=== PATIENT | male | born 1955 | race Caucasian/White ===

== ENCOUNTER 2019-05-10 08:46 | Outpatient (CLI) | payer MEDICARE, MEDICAID, SELFPAY ==
--- NOTE | 2019-05-10 | XR_ITS ---
WS: [id number] PROCEDURE: XR chest 2V* [id number] CLINICAL INFORMATION: SHORTNESS OF BREATH, WEAKNESS COMPARISON: FINDINGS: Heart: Normal cardiac silhouette. Sternotomy. Aortic calcification. Lungs: Chronic emphysema with interstitial thickening. No acute-appearing pulmonary infiltrates. No f ocal pneumonia. Bones: Normal visualized bony structures. XR/XR chest 2V* [id number] IMPRESSION: Chronic emphysematous changes with interstitial thickening. No focal pneumonia.
== END 2019-05-10 08:47 | disposition home or self-care (01) ==
LOC: RADOUTREAD 05-12 08:52
PROVIDERS: Family Provider Family Medicine; PCP Family Medicine; Visit Provider Family Medicine
DX: J43.9 Emphysema, unspecified (principal); R06.02 Shortness of breath; R04.2 Hemoptysis; R53.1 Weakness; F17.200 Nicotine dependence, unspecified, uncomplicated; Z95.1 Presence of aortocoronary bypass graft

== ENCOUNTER 2019-05-27 16:11 | Emergency (ER) | payer MEDICARE, MEDICAID, SELFPAY ==
[2019-05-27 16:13] VITALS: BP 92/47; PULSE 71; RESP 20; TEMP 36.5; O2SAT 98; BMI 29.9
--- NOTE | 2019-05-27 16:15 | ED_ITS ---
Entered by Melani Vieira, acting as scribe for May 27, 2019 16:11 HPI - General Adult General: Chief complaint: Dizziness Stated complaint: WEAK/ DIZZY/ HYPOTENSION Time Seen by Provider: 05/27/19 16:14 Source: patient and EMS Mode of arrival: EMS Limitations: no limitations History of Present Illness: HPI narrative: pt states he woke up with dizziness and off balance. pt had vomiting yesterday. pt states he has had low blood pressure in the past. pt MD complaint: low blood pressure Onset (ago): day(s) (today) Radiation: non-radiation Severity: moderate Relieving factors: none Exacerbating factors: movement (walking) Associated symptoms: Reports vomiting (yesterday) and weakness; Deny chest pain, dyspnea, headache(s) or rash Treatments prior to arrival: none Review of Systems Const: Denies: fever, chills, body aches or change in appetite Eyes: Denies: blurry vision or eye discomfort ENMT: Denies: throat pain or dental pain Card: Denies: chest pain Resp: Denies: shortness of breath GI: Reports: vomiting (yesterday) : Denies: painful urination Musc: Denies: neck pain or back pain Skin/Breast: Denies: rash Neuro: Denies: headache Psych: Denies: depression Rene/Lymph: Denies: easy bruising All/Imm: Denies: hives PFSH ED PFSH: Statuses (acute, chronic, etc) shown below reflect problem list status as previously entered and may not be historically accurate Family History (Updated 05/16/19 @ 08:26 by BHUMI Pineda) Father Lupus Other Alcohol abuse Cancer Depression Diabetes Denies family history of Anesthesia complication Bleeding disorder Social History (Updated 05/16/19 @ 08:27 by BHUMI Pineda) Smoking and tobacco status: current every day smoker Alcohol intake: never Lives independently: Yes Household members: spouse Marital status: Current occupational status: retired Physical Exam Const: COMMON NORMALS: no apparent distress, oriented x3 and healthy appearing HENMT: COMMON NORMALS: normocephalic and head/scalp atraumatic HEAD & SCALP: normocephalic and atraumatic Eye: COMMON NORMALS: PERRL and EOMs intact bilaterally PUPIL: Yes PERRL Neck/C-Spine: COMMON NORMALS: full ROM and supple Chest: COMMONS NORMALS: inspection of chest normal and palpation of chest normal Resp: COMMON NORMALS: normal respiratory effort, no retractions, no use of accessory muscles and clear to auscultation bilaterally AUSCULTATION: clear to auscultation bilaterally Cardio: COMMON NORMALS: regular rate, regular rhythm and no murmurs RATE: regular rate RHYTHM: regular rhythm GI: COMMON NORMALS: normal to inspection, nondistended, normoactive bowel sounds, soft to palpation, non-tender and no masses PALPATION: Yes soft Extremity: COMMON NORMALS: normal to inspection and full ROM Neuro: COMMON NORMALS: oriented x3 Psych: COMMON NORMALS: mental status grossly normal, thought process normal and cooperative THOUGHT PROCESS: normal thought process Skin: COMMON NORMALS: no rashes or lesions noted and no wounds GENERAL SKIN EXAM: no rashes or lesions noted Course Vital Signs: Vital signs: Vital Signs Temperature 97.7 F 05/27/19 16:13 Pulse Rate 64 05/27/19 17:49 Respiratory Rate 18 05/27/19 17:49 Blood Pressure 104/59 05/27/19 17:49 Pulse Oximetry 94 05/27/19 17:49 MDM - General Adult MDM Narrative: Medical decision making narrative: Patient presents here with dizziness likely from dehydration. Patient feels much improved after fluids and is requesting discharge. I feel he is stable for discharge and has no signs of sepsis. Patient has not had a cough or any signs of infection. He is stable for discharge and is to follow-up with his primary care doctor in 3 to 5 days and return to ER if worsening. Lab Data: Labs: Lab Results 05/27/19 05/27/19 05/27/19 Range/Units 15:55 15:55 15:55 WBC 8.6 (4.0-10.0) 10^3/ uL RBC 4.98 (4.1-5.3) 10^6/u L Hgb 15.5 (11.7-16.6) g/dL Hct 46.7 (42.0-52.0) % MCV 93.8 (80-94) fL MCH 31.1 (28.0-34.0) pg MCHC 33.2 (30.0-36.0) g/dL RDW 13.2 (12.1-15.1) % Plt Count 265 (130-400) 10^3/c mm MPV 10.0 (7.4-10.4) fL Neut % (Auto) 48.4 % Lymph % (Auto) 38.8 % [place] % (Auto) 8.8 % Eos % (Auto) 2.6 % Baso % (Auto) 1.2 % Neut # (Auto) 4.2 (1.8-7.7) 10^3/u L Lymph # (Auto) 3.3 (0.8-4.8) 10^3/u L [place] # (Auto) 0.8 (0.2-0.9) 10^3/u L Eos # (Auto) 0.2 (0.0-0.8) 10^3/u L Baso # (Auto) 0.1 (0.0-0.1) 10^3/u L Nucleated RBC % (a uto) 0 % Nucleated RBCs # 0.0 /100WBC PT 12.60 (10.5-13.3) SECO NDS INR 0.92 (0.8-1.2) Sodium 139 (136-145) mmol/L Potassium 3.8 (3.5-5.1) mmol/L Chloride 99 (98-107) mmol/L Carbon Dioxide 25 (22-29) mmol/L Anion Gap 18.8 (5-19) BUN 37 H (8-23) mg/dL Creatinine 2.2 H (0.7-1.2) mg/dL GFR Calculation 30.4 L (90-130) mL/min Glucose 187 H (74-106) mg/dL Lactic Acid (0.5-2.2) mmol/L Calcium 10.8 H (8.5-10.5) mg/dL Total Bilirubin 0.3 (0.15-1.2) mg/dL AST 16 (0-40) U/L ALT 11 (0-41) U/L Alkaline Phosphata se 71 (40-130) IU/L Troponin T Baselin e (0-15) ng/mL Total Protein 8.1 (6.6-8.7) g/dL Albumin 4.7 (3.5-5.2) g/dL Globulin 3.4 (1.3-4.6) g/dL 05/27/19 05/27/19 Range/Units 15:55 16:27 WBC (4.0-10.0) 10^3/ uL RBC (4.1-5.3) 10^6/u L Hgb (11.7-16.6) g/dL Hct (42.0-52.0) % MCV (80-94) fL MCH (28.0-34.0) pg MCHC (30.0-36.0) g/dL RDW (12.1-15.1) % Plt Count (130-400) 10^3/c mm MPV (7.4-10.4) fL Neut % (Auto) % Lymph % (Auto) % [place] % (Auto) % Eos % (Auto) % Baso % (Auto) % Neut # (Auto) (1.8-7.7) 10^3/u L Lymph # (Auto) (0.8-4.8) 10^3/u L [place] # (Auto) (0.2-0.9) 10^3/u L Eos # (Auto) (0.0-0.8) 10^3/u L Baso # (Auto) (0.0-0.1) 10^3/u L Nucleated RBC % (a uto) % Nucleated RBCs # /100WBC PT (10.5-13.3) SECO NDS INR (0.8-1.2) Sodium (136-145) mmol/L Potassium (3.5-5.1) mmol/L Chloride (98-107) mmol/L Carbon Dioxide (22-29) mmol/L Anion Gap (5-19) BUN (8-23) mg/dL Creatinine (0.7-1.2) mg/dL GFR Calculation (90-130) mL/min Glucose (74-106) mg/dL Lactic Acid 1.4 (0.5-2.2) mmol/L Calcium (8.5-10.5) mg/dL Total Bilirubin (0.15-1.2) mg/dL AST (0-40) U/L ALT (0-41) U/L Alkaline Phosphata se (40-130) IU/L Troponin T Baselin e 20 H (0-15) ng/mL Total Protein (6.6-8.7) g/dL Albumin (3.5-5.2) g/dL Globulin (1.3-4.6) g/dL Imaging Data^: CXR: Radiologist's impression: Patient: Gaudencio Boland Unit #: [id number] : 1955 Age/Sex: 63 / M ADM Date: 05/27/19 Loc: ER Room/Bed: Attending Dr: Ordering Provider/Ordering MD: Chung Anderson MD Date of Service: 05/27/19 Procedure(s): XR chest 1V portable [id number] Accession Number(s): [id number] Report Number: [id number] PROCEDURE INFORMATION: Exam: XR Chest, 1 View Exam date and time: 05/27/2019 4:44 PM Age: 63 years old Clinical indication: Cough TECHNIQUE: Imaging protocol: XR of the chest Views: 1 view. COMPARISON: CR XR chest 2V* [id number] 05/10/2019 4:01 PM FINDINGS: Lungs: Nonspecific bibasilar opacity is present, consistent with atelectasis, fibrosis, interstitial edema, or early bibasilar pneumonia. Pleural space: Unremarkable. No pleural effusion. No pneumothorax. Heart/Mediastinum: The heart is enlarged. Sternotomy wires and mediastinal surgical clips are present, consistent with previous coronary arterial bypass grafting. Bones/joints: No acute abnormality. Other findings: Probable mild fibrosis is unchanged. XR/XR chest 1V portable [id number] IMPRESSION: Nonspecific bibasilar opacity is present, consistent with atelectasis, fibrosis, interstitial edema, or early bibasilar pneumonia. EKG Data^: EKG 1: Attestation: I personally reviewed and interpreted this EKG as follows: EKG interpretation date: 05/27/19 EKG interpretation time: 16:25 Interpretation: nsr hr [address] or t wave abnormalities qrs 93 qtc 385 Computer generated interpretation: Chest X-Ray 05/27/19 16:17 IMPRESSION: Nonspecific bibasilar opacity is present, consistent with atelectasis, fibrosis, interstitial edema, or early bibasilar pneumonia. Head CT 05/27/19 16:49 IMPRESSION: No acute intracranial abnormality. Radiation Dose CTDIVOL = (mGy): DLP = 892.36 (mGy-cm) Discharge Plan Discharge Patient Disposition: Home, Self-Care Clinical Impression: Weakness, Vomiting, Acute dehydration Condition: Stable Prescriptions: New Zofran 4 mg tablet 4 mg PO QID PRN (Reason: nausea and vomiting) Qty: 14 RF: 0 No Action hydrocodone-acetaminophen 10-325 mg tablet 2 tab PO TID PRNRF: 0 methocarbamol 500 mg tablet 500 mg PO QID RF: 0 gabapentin 800 mg tablet See Rx Instructions PO BID RF: 0 fentanyl 50 mcg/hr patch 72 hour 1 patch TRANSDERMA Q72H RF: 0 niacin 500 mg tablet 500 mg PO QDAY RF: 0 isosorbide mononitrate 120 mg tablet extended release 24 hr 120 mg PO QAM RF: 0 aspirin [Adult Low Dose Aspirin] 81 mg tablet,delayed release (DR/EC) 81 mg PO QDAY RF: 0 clopidogrel 75 mg tablet 75 mg PO QDAY RF: 0 rosuvastatin [Crestor] 40 mg tablet 40 mg PO QDAY RF: 0 ezetimibe 10 mg tablet 10 mg PO QDAY RF: 0 nitroglycerin [Nitrolingual] 400 mcg/spray spray,non-aerosol 1 spray SUBLINGUAL Q5M PRNRF: 0 ranolazine 500 mg tablet extended release 12 hr 500 mg PO BID RF: 0 Farxiga 10 mg tablet 10 mg PO QAM RF: 0 levothyroxine 75 mcg capsule 75 mcg PO QDAY RF: 0 escitalopram oxalate [Lexapro] 20 mg tablet 20 mg PO QDAY RF: 0 Victoza 2-John 0.6 mg/0.1 mL (18 mg/3 mL) pen injector 0.6 mg SUBCUT QDAY RF: 0 Lantus Solostar U-100 Insulin 100 unit/mL (3 mL) insulin pen 25 unit SUBCUT QDAY RF: 0 multivitamin [Daily Multi-Vitamin] Tablet 1 tab PO QAM RF: 0 fenofibrate 150 mg capsule 150 mg PO QDAY RF: 0 simethicone [Gas Relief (simethicone)] 80 mg tablet,chewable 80 mg PO ONCE RF: 0 esomeprazole magnesium [Nexium] 40 mg capsule,delayed release(DR/EC) 40 mg PO BID RF: 0 trazodone 50 mg tablet 50 mg PO QDAY PRNRF: 0 Bydureon 2 mg/0.65 mL pen injector 2 mg SUBCUT BID RF: 0 loratadine 10 mg tablet 10 mg PO QDAY RF: 0 tamsulosin 0.4 mg capsule 0.4 mg PO QDAY RF: 0 metoprolol tartrate 50 mg tablet 50 mg PO BID 90 Days Qty: 180 RF: 3 Discharge Orders: Discharge Order (Routine); Ordered 05/27/19 Ordered By: Chung Anderson Referrals: Ronan Carlos MD [Primary Care Provider] - Discharge Diet: Advance as tolerated Discharge Activity: Increase activity as tolerated Patient Instructions: Dehydration (ED), Weakness (ED) Discharge Date/Time: 05/27/19 17:56 Coding Level of Care Code ED Director Business Systems for Chg Fwd Exam Problem Focused The documentation recorded by the Dariel hurley Bridget Annette, accurately reflects the service I personally performed and the decisions made by Justin pastor Korby, MD May 27, 2019 16:11
[2019-05-27 16:47] LABS: Basophils # 0.1 10^3/uL (0.0-0.1); Basophils % 1.2 %; Eosinophils # 0.2 10^3/uL (0.0-0.8); Eosinophils % 2.6 %; Hematocrit 46.7 % (42.0-52.0); Hemoglobin 15.5 g/dL (11.7-16.6); Lymphocytes # 3.3 10^3/uL (0.8-4.8); Lymphocytes % 38.8 %; Mean Corpuscular HGB Conc 33.2 g/dL (30.0-36.0); Mean Corpuscular Hemoglobin 31.1 pg (28.0-34.0); Mean Corpuscular Volume 93.8 fL (80-94); Monocytes # 0.8 10^3/uL (0.2-0.9); Monocytes % 8.8 %; Neutrophils # 4.2 10^3/uL (1.8-7.7); Neutrophils % 48.4 %; Nucleated Red Blood Cells % 0 %; Platelet Count 265 10^3/cmm (130-400); Red Blood Count 4.98 10^6/uL (4.1-5.3); Red Cell Distribution Width 13.2 % (12.1-15.1); White Blood Count 8.6 10^3/uL (4.0-10.0)
--- NOTE | 2019-05-27 16:49 | CTR_ITS ---
PROCEDURE INFORMATION: Exam: CT Head Without Contrast Exam date and time: 05/27/2019 4:50 PM Age: 63 years old Clinical indication: Weakness, facial; Patient HX: Weakness / low BP / dizziness TECHNIQUE: Imaging protocol: Computed tomography of the head without contrast. Total DLP: 892.36 mGy-cm Radiation optimization: All CT scans at this facility use at least one of these dose optimization techniques: automated exposure control; mA and/or kV adjustment per patient size (includes targeted exams where dose is matched to clinical indication); or iterative reconstruction. COMPARISON: No relevant prior studies available. FINDINGS: Brain: Normal. No hemorrhage. Unremarkable white matter. No mass effect. Ventricles: Normal. No ventriculomegaly. Bones/joints: Unremarkable. No acute fracture. Sinuses: Visualized sinuses are unremarkable. No fluid levels. Mastoid air cells: Visualized mastoid air cells are well aerated. Soft tissues: Unremarkable. CT/CT head wo con* [id number] IMPRESSION: No acute intracranial abnormality. Radiation Dose CTDIVOL = (mGy): DLP = 892.36 (mGy-cm)
[2019-05-27 17:01] LABS: INR 0.92 (0.8-1.2)
[2019-05-27 17:03] LABS: Lactic Sepsis W/Reflex 1.4 mmol/L (0.5-2.2)
[2019-05-27 17:06] LABS: Alanine Aminotransferase 11 U/L (0-41); Albumin Level 4.7 g/dL (3.5-5.2); Alkaline Phosphatase 71 IU/L (40-130); Anion Gap 18.8 (5-19); Aspartate Amino Transferase 16 U/L (0-40); Blood Urea Nitrogen 37 mg/dL (8-23); Calcium 10.8 mg/dL (8.5-10.5); Carbon Dioxide 25 mmol/L (22-29); Chloride 99 mmol/L (98-107); Creatinine Clr Calc Pharmacy 42.1252; Globulin 3.4 g/dL (1.3-4.6); Glomerular Filtration Rate 30.4 mL/min (90-130); Glucose 187 mg/dL (74-106); Potassium 3.8 mmol/L (3.5-5.1); Sodium 139 mmol/L (136-145); Total Bilirubin 0.3 mg/dL (0.15-1.2); Total Protein 8.1 g/dL (6.6-8.7)
[2019-05-27 17:07] LABS: Troponin(5th) Baseline 20 ng/mL (0-15)
[2019-05-27] MEDS: sodium chloride 0.9% 1,000 ML 999 ML IV (17:23)
[2019-05-27 17:49] VITALS: BP 104/59; PULSE 64; RESP 18; O2SAT 94
--- NOTE | 2019-05-27 22:19 | ECG_ITS ---
Measurements Intervals [place] Rate: 67 P: 45 SC: 198 QRS: -28 QRSD: 93 T: 71 QT: 370 QTc: 391 SINUS RHYTHM BORDERLINE LEFT AXIS DEVIATION [QRS AXIS < -20] INCOMPLETE RIGHT BUNDLE BRANCH BLOCK [90+ ms QRS DURATION, TERMINAL R IN V1/V2, 40+ ms S IN I/aVL/V4/V5/V6] NONSPECIFIC T-WAVE ABNORMALITY Compared to ECG 08/23/2015 05:54:46 Incomplete right bundle-branch block now present T-wave abnormality still present Electronically Signed On 05-28-2019 16:25:56 STILL CLEANER by Josephine Lepe M.D. [id number]
== END 2019-05-27 17:56 | disposition home or self-care (01) ==
PROVIDERS: Emergency Provider Emergency Medicine; Family Provider Family Medicine; PCP Family Medicine
DX: E86.0 Dehydration (principal); R53.1 Weakness; R11.10 Vomiting, unspecified; Z79.82 Long term (current) use of aspirin; Z79.02 Long term (current) use of antithrombotics/antiplatelets; Z79.4 Long term (current) use of insulin; F17.210 Nicotine dependence, cigarettes, uncomplicated
CPT/HCPCS: 36415; 70450; 71045; 80053; 83605; 84484; 85025; 85610; 87040; 93005; 96360; 96361; 99282; 99284; J7030

== ENCOUNTER 2019-06-07 14:26 | Outpatient (CLI) | payer MEDICARE, MEDICAID, SELFPAY ==
--- NOTE | 2019-06-07 | XR_ITS ---
WS: [id number] HIP WITH PELVIS LEFT TECHNIQUE: 3 views of the left hip with pelvis CLINICAL INFORMATION: LEFT HIP PAIN COMPARISON: None. FINDINGS: Moderate degenerative arthritis left hip with some subchondral cystic change. Osteopenia. Vascular ca lcification. No acute fractures. XR/XR hip LT 2-3V wo/w pel* [id number] IMPRESSION: Moderate degenerative arthritis left hip with subchondral cystic change. Osteop enia. No acute fractures
== END 2019-06-07 14:27 | disposition home or self-care (01) ==
PROVIDERS: Family Provider Family Medicine; PCP Family Medicine; Visit Provider Family Medicine
DX: Z76.89 Persons encountering health services in other specified circumstances (principal)

== ENCOUNTER → 2019-06-21 11:19 | Outpatient (BNVA) | payer MEDICARE, MEDICAID, SELFPAY | PROVIDERS: Family Provider Family Medicine; PCP Family Medicine; Referring Provider Family Medicine; Visit Provider Specialist | DX: G62.9 Polyneuropathy, unspecified (principal); R20.0 Anesthesia of skin; F17.210 Nicotine dependence, cigarettes, uncomplicated | CPT/HCPCS: 95913 ==

== ENCOUNTER → 2019-11-09 14:31 | Outpatient (BNVA) | payer MEDICARE, MEDICAID, SELFPAY | PROVIDERS: Family Provider Family Medicine; PCP Family Medicine; Visit Provider Family Medicine | DX: E11.42 Type 2 diabetes mellitus with diabetic polyneuropathy (principal); E78.5 Hyperlipidemia, unspecified; I10 Essential (primary) hypertension; N18.9 Chronic kidney disease, unspecified; I25.10 Atherosclerotic heart disease of native coronary artery without angina pectoris; M65.30 Trigger finger, unspecified finger; Z79.4 Long term (current) use of insulin; R22.9 Localized swelling, mass and lump, unspecified; J44.9 Chronic obstructive pulmonary disease, unspecified; K21.9 Gastro-esophageal reflux disease without esophagitis; G89.29 Other chronic pain; M54.5 Low back pain; E03.9 Hypothyroidism, unspecified; F03.90 Unspecified dementia, unspecified severity, without behavioral disturbance, psychotic disturbance, mood disturbance, and anxiety | CPT/HCPCS: 83036; 84443 ==

== ENCOUNTER → 2019-12-28 09:30 | Outpatient (BNVA) | payer MEDICARE, MEDICAID, SELFPAY | PROVIDERS: PCP Family Medicine; Referring Provider Family Medicine; Visit Provider Specialist | DX: R29.90 Unspecified symptoms and signs involving the nervous system (principal); G62.9 Polyneuropathy, unspecified; E11.40 Type 2 diabetes mellitus with diabetic neuropathy, unspecified; F17.210 Nicotine dependence, cigarettes, uncomplicated; J44.9 Chronic obstructive pulmonary disease, unspecified | CPT/HCPCS: 99204 ==

== ENCOUNTER → 2020-01-10 15:21 | Outpatient (BNVA) | payer MEDICARE, MEDICAID, SELFPAY | PROVIDERS: PCP Family Medicine Adult Medicine; Visit Provider Family Medicine Adult Medicine | DX: Z11.59 Encounter for screening for other viral diseases (principal) | CPT/HCPCS: 87635 ==

== ENCOUNTER → 2020-01-17 14:14 | Outpatient (BNVA) | payer MEDICARE, MEDICAID, SELFPAY | PROVIDERS: PCP Family Medicine Adult Medicine; Referring Provider Family Medicine; Visit Provider Dermatology | DX: D48.5 Neoplasm of uncertain behavior of skin (principal); F17.210 Nicotine dependence, cigarettes, uncomplicated | CPT/HCPCS: 99202; 99203 ==

== ENCOUNTER → 2020-02-06 17:16 | Outpatient (BNVA) | payer MEDICARE, MEDICAID, SELFPAY | PROVIDERS: PCP Family Medicine Adult Medicine; Visit Provider Dermatology | DX: D48.9 Neoplasm of uncertain behavior, unspecified (principal) | CPT/HCPCS: 88304 ==

== ENCOUNTER 2020-09-07 09:35 | Outpatient (CLI) | payer MEDICARE, MEDICAID, SELFPAY | END 2020-09-07 09:36 | disposition home or self-care (01) | LOC: LAB 07-11 15:32 | PROVIDERS: PCP Family Medicine Adult Medicine; Visit Provider Family Medicine Adult Medicine | DX: E11.9 Type 2 diabetes mellitus without complications (principal); I25.810 Atherosclerosis of coronary artery bypass graft(s) without angina pectoris; R29.6 Repeated falls; R42 Dizziness and giddiness; E78.5 Hyperlipidemia, unspecified; R09.89 Other specified symptoms and signs involving the circulatory and respiratory systems | CPT/HCPCS: 80053; 80061; 85025 ==

== ENCOUNTER → 2020-09-20 14:38 | Outpatient (BNVA) | payer MEDICARE, MEDICAID, SELFPAY | PROVIDERS: PCP Family Medicine Adult Medicine; Visit Provider Family Medicine Adult Medicine | DX: E11.9 Type 2 diabetes mellitus without complications (principal); E03.9 Hypothyroidism, unspecified; D04.9 Carcinoma in situ of skin, unspecified; R01.1 Cardiac murmur, unspecified; R09.89 Other specified symptoms and signs involving the circulatory and respiratory systems; I25.810 Atherosclerosis of coronary artery bypass graft(s) without angina pectoris; R53.1 Weakness; N18.9 Chronic kidney disease, unspecified; I25.10 Atherosclerotic heart disease of native coronary artery without angina pectoris; R42 Dizziness and giddiness; E11.39 Type 2 diabetes mellitus with other diabetic ophthalmic complication; H54.7 Unspecified visual loss; J44.9 Chronic obstructive pulmonary disease, unspecified | CPT/HCPCS: 83036; 84443 ==

== ENCOUNTER → 2021-01-15 11:27 | Outpatient (BNVA) | payer MEDICARE, MEDICAID, SELFPAY | PROVIDERS: PCP Family Medicine Adult Medicine; Visit Provider Family Medicine Adult Medicine | DX: E11.9 Type 2 diabetes mellitus without complications (principal); G47.00 Insomnia, unspecified; E03.9 Hypothyroidism, unspecified; E78.5 Hyperlipidemia, unspecified; J44.9 Chronic obstructive pulmonary disease, unspecified; N18.9 Chronic kidney disease, unspecified; F03.90 Unspecified dementia, unspecified severity, without behavioral disturbance, psychotic disturbance, mood disturbance, and anxiety; Z68.29 Body mass index [BMI] 29.0-29.9, adult; F17.210 Nicotine dependence, cigarettes, uncomplicated | CPT/HCPCS: 80053; 83036; 84443; 85025 ==

== ENCOUNTER 2021-10-26 01:14 | Emergency (ER) | payer MEDICARE, MEDICAID, SELFPAY ==
[2021-10-26 01:20] VITALS: BP 216/106; PULSE 102; RESP 18; TEMP 36.7; O2SAT 97; BMI 29.4
--- NOTE | 2021-10-26 01:24 | XRR_ITS ---
PROCEDURE INFORMATION: Exam: XR Chest Exam date and time: 10/26/2021 1:39 AM Age: 66 years old Clinical indication: Pain; Angina pectoris; Prior surgery; Surgery date: 6+ months; Surgery type: Cabbage, mi, stent; Additional info: Cp TECHNIQUE: Imaging protocol: Radiologic exam of the chest. Views: 1 view. COMPARISON: CR XR chest 1V portable [id number] 05/27/2019 4:35 PM FINDINGS: Lungs: Unremarkable. No consolidation. Pleural spaces: Unremarkable. No pleural effusion. No pneumothorax. Heart/Mediastinum: Unremarkable. No cardiomegaly. Bones/joints: There has been a median sternotomy. XR/XR chest 1V portable [id number] IMPRESSION: No acute disease.
[2021-10-26 01:43] LABS: Basophils # 0.2 10^3/uL (0.0-0.1); Basophils % 1.2 %; Eosinophils # 0.2 10^3/uL (0.0-0.8); Eosinophils % 1.2 %; Hematocrit 46.9 % (42.0-52.0); Hemoglobin 16.8 g/dL (11.7-16.6); Lymphocytes # 2.7 10^3/uL (0.8-4.8); Lymphocytes % 19.3 %; Mean Corpuscular HGB Conc 35.8 g/dL (30.0-36.0); Mean Corpuscular Hemoglobin 31.3 pg (28.0-34.0); Mean Corpuscular Volume 87.5 fl (80-94); Mean Platelet Volume 9.7 fL (7.4-10.4); Monocytes % 7.5 %; Neutrophils # 9.72 10^3/uL (1.8-7.7); Neutrophils % 70.6 %; Nucleated Red Blood Cells % 0 %; Platelet Count 259 10^3/cmm (130-400); Red Blood Count 5.36 10^6/uL (4.1-5.3); Red Cell Distribution Width 12.7 % (12.1-15.1); White Blood Count 13.8 10^3/uL (4.0-10.0)
[2021-10-26 01:53] LABS: INR 0.96 (0.8-1.2)
[2021-10-26 01:53] LABS: Glucose Point of Care 205 mg/dL (70-110)
[2021-10-26 01:54] LABS: Partial Thromboplastin Time 27.7 SECONDS (23.9-36.7)
[2021-10-26 02:07] LABS: Troponin(5th) Baseline 14 ng/L (0-15)
[2021-10-26 02:08] VITALS: BP 165/94; PULSE 103; RESP 16; O2SAT 95
[2021-10-26 02:16] LABS: Alanine Aminotransferase 17 U/L (0-41); Alkaline Phosphatase 73 IU/L (40-130); Anion Gap 18.5 (5-19); Aspartate Amino Transferase 16 U/L (0-40); Blood Urea Nitrogen 17 mg/dL (8-23); Calcium 10.4 mg/dL (8.5-10.5); Carbon Dioxide 24 mmol/L (22-29); Chloride 101 mmol/L (98-107); Creatine Phosphokinase 48 U/L (39-308); Globulin 3.3 g/dL (1.3-4.6); Glomerular Filtration Rate 84.4 mL/min (90-130); Glucose 202 mg/dL (65-115); NT Pro B Type Natriuretic Pept 345 pg/mL (0-125); Osmolality Calculated 297 mOsm/kg (285-295); Potassium 3.5 mmol/L (3.5-5.1); Sodium 140 mmol/L (136-145); Total Bilirubin 0.4 mg/dL (0.15-1.2); Total Protein 8.3 g/dL (6.6-8.7)
[2021-10-26 02:19] LABS: Alcohol Level < 10 mg/dL (0-10)
[2021-10-26 02:23] VITALS: BP 165/94; PULSE 103; RESP 16; O2SAT 95
--- NOTE | 2021-10-26 04:15 | W.ED.CHESTPA ---
HPI - Chest Pain General: Chief Complaint: Chest Pain Stated Complaint: cp Time Seen by Provider: 10/26/21 01:33 History of Present Illness: 66-year-old patient who is here with his earlier, and began to complain of some chest pain his chest pain was resolved prior to being placed in a room with no intervention. He became impatient after several minutes waiting, and decided to sign out AGAINST MEDICAL ADVICE without being seen by physician or provider. [facility] ED PFSH: Medical History (Updated 10/26/21 @ 04:17 by Roman Glynn DO) Basal cell carcinoma (BCC) in situ of skin CAD (coronary artery disease) SP TX and CABG Cardiac murmur, previously undiagnosed Chronic lower back pain COPD (chronic obstructive pulmonary disease) Dyslipidemia GERD (gastroesophageal reflux disease) Heart murmur Hypertension Insomnia Multiple falls Myocardial infarction Neuropathy Obesity Overgrown toenails Squamous cell carcinoma Thyroid cancer Tobacco abuse Surgical History History of appendectomy History of bilateral inguinal hernia repair History of colonoscopy (2015) History of coronary artery bypass surgery History of esophagogastroduodenoscopy (EGD) (2015) History of hemorrhoidectomy History of thyroidectomy History of tonsillectomy History of vasectomy Family History Father Lupus Other Alcohol abuse Cancer Depression Diabetes Denies family history of Anesthesia complication Bleeding disorder Social History Smoking and tobacco status: current every day smoker cigarettes Packs smoked per day: 2 Alcohol intake: never Lives independently: Yes Household members: spouse Marital status: Current occupational status: retired Course Vital Signs: Vital signs: Vital Signs Temperature 98.1 F 10/26/21 01:20 Pulse Rate 103 H 10/26/21 02:23 Respiratory Rate 16 10/26/21 02:23 Blood Pressure 165/94 10/26/21 02:23 Pulse Oximetry 95 10/26/21 02:23 MDM - Chest Pain Medical Decision Making Signed out AMA as above Lab Data : 10/26/21 01:30 10/26/21 01:30 Radiology Impressions Chest X-Ray 10/26/21 01:24 IMPRESSION: No acute disease. Laboratory Results WBC 13.8 10^3/uL (4.0-10.0) H 10/26/21 01:30 RBC 5.36 10^6/uL (4.1-5.3) H 10/26/21 01:30 Hgb 16.8 g/dL (11.7-16.6) H 10/26/21 01:30 Hct 46.9 % (42.0-52.0) 10/26/21 01:30 MCV 87.5 fl (80-94) 10/26/21 01:30 MCH 31.3 pg (28.0-34.0) 10/26/21 01:30 MCHC 35.8 g/dL (30.0-36.0) 10/26/21 01:30 RDW 12.7 % (12.1-15.1) 10/26/21 01:30 Plt Count 259 10^3/cmm (130-400) 10/26/21 01:30 MPV 9.7 fL (7.4-10.4) 10/26/21 01:30 Neut % (Auto) 70.6 % 10/26/21 01:30 Lymph % (Auto) 19.3 % 10/26/21 01:30 [place] % (Auto) 7.5 % 10/26/21 01:30 Eos % (Auto) 1.2 % 10/26/21 01:30 Baso % (Auto) 1.2 % 10/26/21 01:30 Neut # (Auto) 9.72 10^3/uL (1.8-7.7) H 10/26/21 01:30 Lymph # (Auto) 2.7 10^3/uL (0.8-4.8) 10/26/21 01:30 [place] # (Auto) 1.0 10^3/uL (0.2-0.9) H 10/26/21 01:30 Eos # (Auto) 0.2 10^3/uL (0.0-0.8) 10/26/21 01:30 Baso # (Auto) 0.2 10^3/uL (0.0-0.1) H 10/26/21 01:30 Nucleated RBC % (auto) 0 % 10/26/21 01:30 Nucleated RBCs # 0.0 /100WBC 10/26/21 01:30 PT 13.00 SECONDS (12.1-14.9) 10/26/21 01:30 INR 0.96 (0.8-1.2) 10/26/21 01:30 APTT 27.7 SECONDS (23.9-36.7) 10/26/21 01:30 Sodium 140 mmol/L (136-145) 10/26/21 01:30 Potassium 3.5 mmol/L (3.5-5.1) 10/26/21 01:30 Chloride 101 mmol/L (98-107) 10/26/21 01:30 Carbon Dioxide 24 mmol/L (22-29) 10/26/21 01:30 Anion Gap 18.5 (5-19) 10/26/21 01:30 BUN 17 mg/dL (8-23) 10/26/21 01:30 Creatinine 0.9 mg/dL (0.7-1.2) 10/26/21 01:30 GFR Calculation 84.4 mL/min (90-130) L 10/26/21 01:30 Glucose 202 mg/dL (65-115) H 10/26/21 01:30 POC Glucose 205 mg/dL (70-110) H 10/26/21 01:48 Calculated Osmolality 297 mOsm/kg (285-295) H 10/26/21 01:30 Calcium 10.4 mg/dL (8.5-10.5) 10/26/21 01:30 Total Bilirubin 0.4 mg/dL (0.15-1.2) 10/26/21 01:30 AST 16 U/L (0-40) 10/26/21 01:30 ALT 17 U/L (0-41) 10/26/21 01:30 Alkaline Phosphatase 73 IU/L (40-130) 10/26/21 01:30 Creatine Kinase 48 U/L (39-308) 10/26/21 01:30 Troponin T Baseline 14 ng/L (0-15) 10/26/21 01:30 NT-Pro-B Natriuret Pep 345 pg/mL (0-125) H 10/26/21 01:30 Total Protein 8.3 g/dL (6.6-8.7) 10/26/21 01:30 Albumin 5.0 g/dL (3.5-5.2) 10/26/21 01:30 Globulin 3.3 g/dL (1.3-4.6) 10/26/21 01:30 Ethyl Alcohol < 10 mg/dL (0-10) 10/26/21 01:30 Discharge Plan Discharge Patient Disposition: Left Against Medical Advice Clinical Impression: Chest pain Condition: Stable Prescriptions: No Action hydrocodone-acetaminophen 10-325 mg tablet 2 tab PO TID PRN (Reason: Pain) 0RF fentanyl 25 mcg/hr patch 72 hour 1 patch TRANSDERMA Q72H 0RF nitroglycerin 0.4 mg tablet, sublingual 0.4 mg SUBLINGUAL Q5M PRN (Reason: Chest Pain) Qty: 10 5RF escitalopram oxalate [Lexapro] 20 mg tablet 20 mg PO QDAY 90 Days Qty: 90 0RF Jardiance 25 mg tablet 25 mg PO DAILY Qty: 90 2RF esomeprazole magnesium 40 mg capsule,delayed release(DR/EC) 40 mg PO DAILY 90 Days Qty: 90 2RF Victoza 2-John 0.6 mg/0.1 mL (18 mg/3 mL) pen injector 1.8 mg SUBCUT QDAY 90 Days Qty: 27 3RF multivitamin [Daily Multi-Vitamin] Tablet 1 tab PO QAM 90 Days Qty: 90 3RF albuterol sulfate 90 mcg/actuation HFA aerosol inhaler See Rx Instructions .ROUTE .COMPLEX Qty: 8.5 5RF Dose Instruction: INHALE 2 PUFFS EVERY 6 HOURS NEEDED FOR SHORTNESS OF BREATH OR WHEEZING Rx Instructions: INHALE 2 PUFFS EVERY 6 HOURS NEEDED FOR SHORTNESS OF BREATH OR WHEEZING docusate sodium 100 mg capsule See Rx Instructions .ROUTE .COMPLEX Qty: 180 1RF Dose Instruction: TAKE 2 CAPSULES AT BEDTIME 90 DAYS Rx Instructions: TAKE 2 CAPSULES AT BEDTIME 90 DAYS loratadine 10 mg tablet See Rx Instructions .ROUTE .COMPLEX Qty: 90 1RF Dose Instruction: TAKE 1 TABLET BY MOUTH EVERY DAY Rx Instructions: TAKE 1 TABLET BY MOUTH EVERY DAY ranolazine 500 mg tablet extended release 12 hr See Rx Instructions .ROUTE .COMPLEX Qty: 180 0RF Dose Instruction: TAKE 1 TABLET BY MOUTH TWICE A DAY Rx Instructions: TAKE 1 TABLET BY MOUTH TWICE A DAY methocarbamol 500 mg tablet See Rx Instructions .ROUTE .COMPLEX Qty: 60 3RF Dose Instruction: TAKE 1 TABLET BY MOUTH TWICE A DAY FOR CHRONIC MUSCLE PAIN Rx Instructions: TAKE 1 TABLET BY MOUTH TWICE A DAY FOR CHRONIC MUSCLE PAIN aspirin 81 mg tablet,delayed release (DR/EC) 81 mg PO DAILY Qty: 90 3RF ezetimibe 10 mg tablet 10 mg PO DAILY Qty: 90 1RF gabapentin 800 mg tablet 1,200 mg PO DAILY Qty: 45 5RF levothyroxine 100 mcg tablet See Rx Instructions .ROUTE .COMPLEX Qty: 90 1RF Dose Instruction: TAKE 1 TABLET BY MOUTH EVERY DAY Rx Instructions: TAKE 1 TABLET BY MOUTH EVERY DAY metoprolol tartrate 50 mg tablet 50 mg PO BID Qty: 180 3RF trazodone 50 mg tablet 25 mg PO .hs PRN (Reason: insomnia) Qty: 45 1RF tamsulosin 0.4 mg capsule See Rx Instructions .ROUTE .COMPLEX Qty: 90 0RF Dose Instruction: TAKE 1 CAPSULE BY MOUTH EVERY DAY Rx Instructions: TAKE 1 CAPSULE BY MOUTH EVERY DAY clopidogrel 75 mg tablet See Rx Instructions .ROUTE .COMPLEX Qty: 90 0RF Dose Instruction: TAKE 1 TABLET BY MOUTH EVERY DAY Rx Instructions: TAKE 1 TABLET BY MOUTH EVERY DAY Referrals: Kavin Tinoco MD [Primary Care Provider] - Coding Level of Care Code ED Electronic Controls Repairer Supervisor for Shanna Crawley
--- NOTE | 2021-10-26 07:24 | ECG_ITS ---
[facility] Test Date: 2021-10-26 Pat Name: Gaudencio Boland Department: Room: Gender: Male Animal Tech: : 1955 Requested By: Roman Saez Order Number: [id number] Lisandro MD: Ori Goodman M.D. Measurements Intervals [place] Rate: 101 P: 58 [place]: 172 QRS: -51 QRSD: 94 T: 62 QT: 348 QTc: 452 Interpretive Statements SINUS TACHYCARDIA INCOMPLETE RIGHT BUNDLE BRANCH BLOCK [90+ ms QRS DURATION, TERMINAL R IN V1/V2, 40+ ms S IN I/aVL/V4/V5/V6] LEFT ANTERIOR FASCICULAR BLOCK [QRS AXIS <= -45, QR IN I, RS IN II] Compared to ECG 05/27/2019 16:25:27 Left anterior fascicular block now present Sinus rhythm no longer present T-wave abnormality no longer present Electronically Signed On 10-26-2021 12:35:51 CDT by Ori Goodman M.D. [email or web address]
== END 2021-10-26 02:26 | disposition left against medical advice (07) ==
PROVIDERS: Emergency Provider Emergency Medicine; PCP Family Medicine Adult Medicine
DX: R07.9 Chest pain, unspecified (principal); Z53.21 Procedure and treatment not carried out due to patient leaving prior to being seen by health care provider; Z79.82 Long term (current) use of aspirin; Z79.02 Long term (current) use of antithrombotics/antiplatelets; I25.10 Atherosclerotic heart disease of native coronary artery without angina pectoris; J44.9 Chronic obstructive pulmonary disease, unspecified; E78.5 Hyperlipidemia, unspecified; I10 Essential (primary) hypertension; I25.2 Old myocardial infarction; Z85.850 Personal history of malignant neoplasm of thyroid; Z95.1 Presence of aortocoronary bypass graft; F17.210 Nicotine dependence, cigarettes, uncomplicated
CPT/HCPCS: 36416; 71045; 80053; 80307; 82550; 82962; 83880; 84484; 85025; 85610; 85730; 93005; 99284

== ENCOUNTER → 2021-11-27 17:37 | Outpatient (BNVA) | payer MEDICARE, MEDICAID, SELFPAY | PROVIDERS: PCP Family Medicine Adult Medicine; Visit Provider Nurse Practitioner Family | DX: I10 Essential (primary) hypertension (principal); E11.9 Type 2 diabetes mellitus without complications; Z76.89 Persons encountering health services in other specified circumstances; E03.9 Hypothyroidism, unspecified; F03.90 Unspecified dementia, unspecified severity, without behavioral disturbance, psychotic disturbance, mood disturbance, and anxiety; J44.9 Chronic obstructive pulmonary disease, unspecified; G89.29 Other chronic pain; G47.00 Insomnia, unspecified | CPT/HCPCS: 80053; 80061; 82043; 83036; 84443; 85025 ==

== ENCOUNTER → 2021-12-26 14:38 | Outpatient (BNVA) | payer MEDICARE, MEDICAID, SELFPAY | PROVIDERS: PCP Family Medicine Adult Medicine; Visit Provider Orthopaedic Surgery | DX: M43.16 Spondylolisthesis, lumbar region; M54.2 Cervicalgia; M54.9 Dorsalgia, unspecified; M47.812 Spondylosis without myelopathy or radiculopathy, cervical region | CPT/HCPCS: 72050; 72110; 99204 ==

== ENCOUNTER → 2022-02-06 14:53 | Outpatient (BNVA) | payer MEDICARE, MEDICAID, SELFPAY | PROVIDERS: PCP Family Medicine Adult Medicine; Visit Provider Orthopaedic Surgery | DX: M48.062 Spinal stenosis, lumbar region with neurogenic claudication (principal) | CPT/HCPCS: 99213; 99214 ==